=== PATIENT | female | born 1955 | race Caucasian/White ===

== ENCOUNTER 2017-10-18 14:19 | Inpatient (IN) | payer OTHER ==
[~2017-10-18] VITALS: Ht 172.7 cm; Wt 159.2 kg
[~2017-10-18 14:19] MED LIST: CYCLOBENZAPRINE10 MG PO; MEDROL4 MG/DOSE- PO; NORCO 10-325 T1 EACH PO; OXYBUTYNIN CHLO10 MG PO; PERCOCET 10-321 EACH PO; PHENDIMETRAZIN105 MG PO; PHENTERMINE H37.5 MG PO; TOVIAZ8 MG PO; VENLAFAXINE HCL75 M1 PO
[2017-10-18] MEDS ORDERED: ASPIRIN 81 MG CHEW TAB PO ONE (16:00)
[2017-10-18 16:09] LABS: BASOPHILS # (AUTO) 0.1 (0.0-0.1); BASOPHILS % 0.7 % (0.0-1.0); EOSINOPHILS # (AUTO) 0.2 (0.0-0.4); EOSINOPHILS % 1.6 % (0.0-6.0); HEMATOCRIT 46.4 % (34.2-44.1); HEMOGLOBIN 14.3 g/dL (12.0-16.0); LYMPHOCYTES # (AUTO) 1.3 (1.0-3.2); MEAN CORPUSCULAR HEMOGLOBIN 28.1 pg (28-32); MEAN CORPUSCULAR HGB CONC 30.8 g/dL (31-35); MEAN CORPUSCULAR VOLUME 91.3 fL (81-99); MONOCYTES % 9.4 % (4.4-11.3); NEUTROPHILS # (AUTO) 7.7 (2.1-6.9); NEUTROPHILS % 74.8 % (38.7-80.0); PLATELET COUNT 294 x10e3/uL (140-360); RED BLOOD COUNT 5.08 x10e6/uL (3.6-5.1); RED CELL DISTRIBUTION WIDTH 14.4 % (11.7-14.4)
[2017-10-18 16:15] LABS: INR 1.06; PARTIAL THROMBOPLASTIN TIME 30.8 seconds (23.8-35.5); PROTHROMBIN TIME 14.4 seconds (11.9-14.5)
[2017-10-18 16:24] LABS: ALANINE AMINOTRANSFERASE 17 IU/L (0-55); ALBUMIN 3.4 g/dL (3.5-5.0); ALBUMIN/GLOBULIN RATIO 0.9 (0.8-2.0); ALKALINE PHOSPHATASE 78 IU/L (40-150); ANION GAP 14.9 mmol/L (8-16); BLOOD UREA NITROGEN 11 mg/dL (7-26); BUN/CREATININE RATIO 13 (6-25); CALCIUM 8.9 mg/dL (8.4-10.2); CARBON DIOXIDE 27 mmol/L (22-29); CHLORIDE 101 mmol/L (98-107); CREATINE KINASE 43 IU/L (29-168); CREATININE, SERUM 0.85 mg/dL (0.57-1.11); EST GLOMERULAR FILTRATION RATE > 60 ML/MIN (60-); GLUCOSE 109 mg/dL (74-118); POTASSIUM 3.9 mmol/L (3.5-5.1); SODIUM 139 mmol/L (136-145)
--- NOTE | 2017-10-18 16:42 | Diagnostic Imaging Report ---
PROCEDURE: A single AP view of the chest. COMPARISON: DX, CHEST XRAY LINE PLACEMENT, 11/30/2015, 11:22. INDICATIONS: SWOLLEN LEGS, CHEST PAIN, COUGH FINDINGS: Lines/tubes: None. Lungs: Mild elevation of the right hemidiaphragm. Prominence of the pulmonary vasculature with redistribution bilaterally. Pleura: There is no pleural effusion or pneumothorax. Heart and mediastinum: The cardiac silhouette is moderately enlarged. Bones: No acute bony abnormality. IMPRESSION: 1. Bilateral pulmonary venous congestion. Josh Andrade M.D. Dictated by: Josh Andrade M.D. on 10/18/2017 at 16:50 Electronically approved by: Josh Andrade M.D. on 10/18/2017 at 16:50
[2017-10-18] MEDS ORDERED: DILTIAZEM HCL 5 MG/ML 5 ML VIAL IV ONE (19:00)
[2017-10-18] MEDS ORDERED: ENOXAPARIN SODIUM INJ 100 MG/ML SYR SC ONE ×2 (19:13→19:30)
[2017-10-18] MEDS: DILTIAZEM HCL 100 ML IV PRN ×2 (19:19→22:06)
[2017-10-18] MEDS ORDERED: ONDANSETRON HCL INJ 2 MG/ML VIAL IV PRN (19:45)
[2017-10-18] MEDS ORDERED: FUROSEMIDE INJ 10 MG/ML 4 ML VIAL IV ONE (19:45)
[2017-10-18] MEDS ORDERED: SODIUM CHLORIDE FLUSH 10 ML SYR INJ PRN (19:45)
[2017-10-18] MEDS: ENOXAPARIN SODIUM INJ 100 MG/ML SYR SC SCH (20:30)
[2017-10-19] VITALS (8 sets, daily range): BP systolic 108–129; BP diastolic 64–84
[2017-10-19 00:54] LABS: CREATINE KINASE MB 1.3 ng/mL (0.00-5.00)
[2017-10-19] MEDS: DILTIAZEM HCL 100 ML IV PRN (04:25)
[2017-10-19 05:01] LABS: BASOPHILS # (AUTO) 0.1 (0.0-0.1); EOSINOPHILS # (AUTO) 0.2 (0.0-0.4); EOSINOPHILS % 2.4 % (0.0-6.0); HEMATOCRIT 43.4 % (34.2-44.1); HEMOGLOBIN 13.3 g/dL (12.0-16.0); LYMPHOCYTES # (AUTO) 1.4 (1.0-3.2); LYMPHOCYTES % 15.5 % (18.0-39.1); MEAN CORPUSCULAR HEMOGLOBIN 28.4 pg (28-32); MEAN CORPUSCULAR HGB CONC 30.6 g/dL (31-35); MEAN CORPUSCULAR VOLUME 92.7 fL (81-99); MONOCYTES % 11.5 % (4.4-11.3); NEUTROPHILS # (AUTO) 6.1 (2.1-6.9); PLATELET COUNT 259 x10e3/uL (140-360); RED BLOOD COUNT 4.68 x10e6/uL (3.6-5.1); RED CELL DISTRIBUTION WIDTH 14.5 % (11.7-14.4)
[2017-10-19 05:23] LABS: ALANINE AMINOTRANSFERASE 23 IU/L (0-55); ALBUMIN 3.1 g/dL (3.5-5.0); ALBUMIN/GLOBULIN RATIO 0.9 (0.8-2.0); ALKALINE PHOSPHATASE 71 IU/L (40-150); ANION GAP 15.1 mmol/L (8-16); BLOOD UREA NITROGEN 11 mg/dL (7-26); BUN/CREATININE RATIO 13 (6-25); CALCIUM 8.7 mg/dL (8.4-10.2); CARBON DIOXIDE 30 mmol/L (22-29); CHLORIDE 101 mmol/L (98-107); CREATININE, SERUM 0.86 mg/dL (0.57-1.11); EST GLOMERULAR FILTRATION RATE > 60 ML/MIN (60-); GLUCOSE 93 mg/dL (74-118); POTASSIUM 4.1 mmol/L (3.5-5.1); SODIUM 142 mmol/L (136-145)
[2017-10-19 08:48] LABS: CREATINE KINASE MB 1.4 ng/mL (0.00-5.00)
[2017-10-19] MEDS ORDERED: DETROL LA4 MG PO (08:48)
[2017-10-19] MEDS: FUROSEMIDE INJ 10 MG/ML 4 ML VIAL IV SCH (09:23)
[2017-10-19] MEDS: ASPIRIN 81 MG ENTERIC COATED PO SCH (09:23)
[2017-10-19] MEDS: AMIODARONE HCL 200 MG TAB PO SCH ×2 (09:23→16:20)
[2017-10-19] MEDS: VENLAFAXINE HCL 75 MG CAPCR PO SCH (09:24)
[2017-10-19] MEDS: ENOXAPARIN SODIUM INJ 100 MG/ML SYR SC SCH ×2 (09:24→22:04)
[2017-10-19] MEDS: TOLTERODINE TARTRATE 4 MG CAPCR PO SCH (10:30)
--- NOTE | 2017-10-19 11:34 | Consultation ---
DATE OF CONSULTATION: October 18, 2017 REASON FOR CONSULTATION: AFib with RVR. CONSULTING PHYSICIAN: Dr. Bush. HPI: This is a 62-year-old morbidly obese female that presented with shortness of breath. According to the patient, for the last 3 weeks to 1 month, she started having bilateral lower extremity edema, worsening of shortness of breath. She stated she called the PCP office with her symptoms and they advised her to come to the emergency room. At ER, she was found to be in AFib with RVR, started on Cardizem drip. She denies any chest pain, any dizziness, any headache or diaphoresis. She also stated that 25 years ago, when she was having her bilateral carpal tunnel surgery, she had atrial fibrillation that went away. Her troponin was negative, BNP was 430, and chest x-ray showed some pulmonary venous congestion. PAST MEDICAL HISTORY: Paroxysmal AFib, obesity, cervical cancer, right hip abscess, osteoarthritis, depression, bladder incontinence, COPD, vascular arthritis, and asthma. PAST SURGICAL HISTORY: Carpal tunnel surgery, hysterectomy, , tonsillectomy, and bilateral hip replacement. FAMILY HISTORY: Positive for hypertension. SOCIAL HISTORY: She lives at home with her . No smoking, no drinking. MEDICATIONS: See med list. ALLERGIES: SHE IS ALLERGIC TO PENICILLIN. REVIEW OF SYSTEMS: Negative except those mentioned above. She is positive for AFib and shortness of breath. PHYSICAL EXAMINATION VITALS: Temperature 97, heart rate 95, blood pressure 130/83, oxygen saturation 100% on 2 liters nasal cannula. GENERAL: She is morbidly obese, awake, alert, and oriented times 3. HEENT: Mucous membrane moist. NECK: Supple. LUNGS: Bilateral with decreased breath sounds. CARDIOVASCULAR: Irregularly irregular. ABDOMEN: Soft. NEUROLOGIC: Intact. EXTREMITIES: Bilateral lower with +4 edema. LABORATORY DATA: Sodium 142, potassium 4.1, chloride 101, CO2 of 30, BUN 11, creatinine 0.86, glucose 93. White blood cell 8.84, hemoglobin 13.3, hematocrit 43.4, platelet 259. PT 14.4, PTT 30.8, INR 1.06. IMPRESSION 1. Atrial fibrillation. 2. Obesity. 3. Chronic obstructive pulmonary disease. 4. Depression. 5. Possible congestive heart failure. ASSESSMENT AND PLAN: Will get an echo to assess the LV and the valve function. Heart rate is controlled. Will stop the IV Cardizem drip and start her on p.o. amiodarone. Will continue Lovenox. Discussed to have a p.o. long-term anticoagulation and she wants to think about it. I put her on IV Lasix due to the edema and check her TSH. Further cardiac workup pending clinical course. Thank you for this consultation. DICTATED BY: Ori Pierce NP Job#: [id number] VAS
[2017-10-19] MEDS: METOPROLOL TARTRATE INJ 1 MG/ML VIAL IV PRN (14:40)
[2017-10-20] VITALS (8 sets, daily range): BP systolic 101–143; BP diastolic 51–92
[2017-10-20] MEDS ORDERED: TOLTERODINE TARTRATE 4 MG CAPCR PO SCH (09:00)
[2017-10-20] MEDS: FUROSEMIDE INJ 10 MG/ML 4 ML VIAL IV SCH (10:20)
[2017-10-20] MEDS: AMIODARONE HCL 200 MG TAB PO SCH ×2 (10:20→17:51)
[2017-10-20] MEDS: TOLTERODINE TARTRATE 4 MG CAPCR PO SCH (10:20)
[2017-10-20] MEDS: LISINOPRIL 2.5 MG TAB PO SCH (10:20)
[2017-10-20] MEDS: VENLAFAXINE HCL 75 MG CAPCR PO SCH (10:20)
[2017-10-20] MEDS: ENOXAPARIN SODIUM INJ 100 MG/ML SYR SC SCH ×2 (10:20→20:44)
[2017-10-20] MEDS: ASPIRIN 81 MG ENTERIC COATED PO SCH (10:20)
[2017-10-20] MEDS: NYSTATIN 15 GM POWDER UD BTL TOP SCH ×2 (17:52→20:44)
[2017-10-21] VITALS (7 sets, daily range): BP systolic 96–143; BP diastolic 54–81
[2017-10-21 09:02] LABS: BASOPHILS # (AUTO) 0.1 (0.0-0.1); BASOPHILS % 0.8 % (0.0-1.0); EOSINOPHILS # (AUTO) 0.3 (0.0-0.4); EOSINOPHILS % 3.7 % (0.0-6.0); HEMATOCRIT 44.4 % (34.2-44.1); HEMOGLOBIN 13.3 g/dL (12.0-16.0); LYMPHOCYTES # (AUTO) 1.2 (1.0-3.2); LYMPHOCYTES % 16.9 % (18.0-39.1); MEAN CORPUSCULAR HEMOGLOBIN 28.2 pg (28-32); MEAN CORPUSCULAR VOLUME 94.3 fL (81-99); MONOCYTES # (AUTO) 0.8 (0.2-0.8); MONOCYTES % 11.8 % (4.4-11.3); NEUTROPHILS # (AUTO) 4.7 (2.1-6.9); NEUTROPHILS % 66.4 % (38.7-80.0); PLATELET COUNT 278 x10e3/uL (140-360); RED BLOOD COUNT 4.71 x10e6/uL (3.6-5.1); RED CELL DISTRIBUTION WIDTH 14.6 % (11.7-14.4)
[2017-10-21 09:26] LABS: ALANINE AMINOTRANSFERASE 21 IU/L (0-55); ALBUMIN/GLOBULIN RATIO 0.8 (0.8-2.0); ALKALINE PHOSPHATASE 72 IU/L (40-150); ANION GAP 11.9 mmol/L (8-16); BLOOD UREA NITROGEN 9 mg/dL (7-26); BUN/CREATININE RATIO 11 (6-25); CALCIUM 8.5 mg/dL (8.4-10.2); CARBON DIOXIDE 35 mmol/L (22-29); CHLORIDE 99 mmol/L (98-107); CREATININE, SERUM 0.82 mg/dL (0.57-1.11); EST GLOMERULAR FILTRATION RATE > 60 ML/MIN (60-); GLUCOSE 88 mg/dL (74-118); POTASSIUM 3.9 mmol/L (3.5-5.1); SODIUM 142 mmol/L (136-145)
[2017-10-21] MEDS: NYSTATIN 15 GM POWDER UD BTL TOP SCH ×3 (09:50→21:09)
[2017-10-21] MEDS: TOLTERODINE TARTRATE 4 MG CAPCR PO SCH (09:50)
[2017-10-21] MEDS: VENLAFAXINE HCL 75 MG CAPCR PO SCH (09:50)
[2017-10-21] MEDS: ENOXAPARIN SODIUM INJ 100 MG/ML SYR SC SCH ×2 (09:50→21:09)
[2017-10-21] MEDS: ASPIRIN 81 MG ENTERIC COATED PO SCH (09:50)
[2017-10-21] MEDS: FUROSEMIDE INJ 10 MG/ML 4 ML VIAL IV SCH (09:50)
[2017-10-21] MEDS: AMIODARONE HCL 200 MG TAB PO SCH ×2 (09:50→18:25)
[2017-10-21] MEDS: LISINOPRIL 2.5 MG TAB PO SCH (09:50)
[2017-10-21] MEDS: METOPROLOL TARTRATE 25 MG TAB PO SCH (18:25)
[2017-10-22] VITALS (7 sets, daily range): BP systolic 93–126; BP diastolic 51–80
[2017-10-22] MEDS: METOPROLOL TARTRATE 25 MG TAB PO SCH ×3 (09:14→23:59)
[2017-10-22] MEDS: ASPIRIN 81 MG ENTERIC COATED PO SCH (09:14)
[2017-10-22] MEDS: AMIODARONE HCL 200 MG TAB PO SCH ×2 (09:14→16:48)
[2017-10-22] MEDS: VENLAFAXINE HCL 75 MG CAPCR PO SCH (09:14)
[2017-10-22] MEDS: FUROSEMIDE INJ 10 MG/ML 4 ML VIAL IV SCH (09:14)
[2017-10-22] MEDS: TOLTERODINE TARTRATE 4 MG CAPCR PO SCH (09:14)
[2017-10-22] MEDS: NYSTATIN 15 GM POWDER UD BTL TOP SCH ×3 (09:15→20:27)
[2017-10-22] MEDS: LISINOPRIL 2.5 MG TAB PO SCH (09:15)
[2017-10-22] MEDS ORDERED: RIVAROXABAN 20 MG TABLET PO SCH (17:00)
[2017-10-23] VITALS (7 sets, daily range): BP systolic 84–138; BP diastolic 43–83
[2017-10-23] MEDS: METOPROLOL TARTRATE 25 MG TAB PO SCH ×3 (06:13→17:00)
[2017-10-23 07:25] LABS: BASOPHILS # (AUTO) 0.1 (0.0-0.1); BASOPHILS % 1.3 % (0.0-1.0); EOSINOPHILS # (AUTO) 0.2 (0.0-0.4); EOSINOPHILS % 2.1 % (0.0-6.0); HEMATOCRIT 47.9 % (34.2-44.1); HEMOGLOBIN 14.1 g/dL (12.0-16.0); LYMPHOCYTES # (AUTO) 1.8 (1.0-3.2); LYMPHOCYTES % 19.4 % (18.0-39.1); MEAN CORPUSCULAR HEMOGLOBIN 28.1 pg (28-32); MEAN CORPUSCULAR HGB CONC 29.4 g/dL (31-35); MEAN CORPUSCULAR VOLUME 95.4 fL (81-99); MONOCYTES # (AUTO) 1.2 (0.2-0.8); MONOCYTES % 12.7 % (4.4-11.3); NEUTROPHILS # (AUTO) 5.9 (2.1-6.9); NEUTROPHILS % 64.1 % (38.7-80.0); PLATELET COUNT 293 x10e3/uL (140-360); RED BLOOD COUNT 5.02 x10e6/uL (3.6-5.1); RED CELL DISTRIBUTION WIDTH 14.8 % (11.7-14.4)
[2017-10-23 07:53] LABS: ALBUMIN 3.2 g/dL (3.5-5.0); ALBUMIN/GLOBULIN RATIO 0.9 (0.8-2.0); ANION GAP 15.4 mmol/L (8-16); CALCIUM 8.8 mg/dL (8.4-10.2); CREATININE, SERUM 1.77 mg/dL (0.57-1.11); POTASSIUM 4.4 mmol/L (3.5-5.1)
[2017-10-23] MEDS: FUROSEMIDE 20 MG TAB PO SCH (08:21)
[2017-10-23] MEDS: LISINOPRIL 2.5 MG TAB PO SCH (08:21)
[2017-10-23] MEDS: TOLTERODINE TARTRATE 4 MG CAPCR PO SCH (08:21)
[2017-10-23] MEDS: ASPIRIN 81 MG ENTERIC COATED PO SCH (08:21)
[2017-10-23] MEDS: AMIODARONE HCL 200 MG TAB PO SCH ×2 (08:21→17:00)
[2017-10-23] MEDS: VENLAFAXINE HCL 75 MG CAPCR PO SCH (08:21)
[2017-10-23] MEDS: NYSTATIN 15 GM POWDER UD BTL TOP SCH ×3 (08:21→20:16)
[2017-10-23] MEDS ORDERED: RIVAROXABAN 20 MG TABLET PO SCH (17:00)
[2017-10-23] MEDS ORDERED: SODIUM CHLORIDE 0.9% 250ML 250 ML ONE (20:04)
[2017-10-24] VITALS (7 sets, daily range): BP systolic 89–134; BP diastolic 50–94
[2017-10-24 07:22] LABS: BASOPHILS # (AUTO) 0.1 (0.0-0.1); EOSINOPHILS # (AUTO) 0.3 (0.0-0.4); EOSINOPHILS % 3.2 % (0.0-6.0); HEMATOCRIT 41.8 % (34.2-44.1); HEMOGLOBIN 12.6 g/dL (12.0-16.0); LYMPHOCYTES # (AUTO) 1.5 (1.0-3.2); LYMPHOCYTES % 16.9 % (18.0-39.1); MEAN CORPUSCULAR HEMOGLOBIN 28.4 pg (28-32); MEAN CORPUSCULAR HGB CONC 30.1 g/dL (31-35); MEAN CORPUSCULAR VOLUME 94.1 fL (81-99); MONOCYTES # (AUTO) 1.2 (0.2-0.8); MONOCYTES % 13.3 % (4.4-11.3); NEUTROPHILS # (AUTO) 5.9 (2.1-6.9); NEUTROPHILS % 65.2 % (38.7-80.0); PLATELET COUNT 252 x10e3/uL (140-360); RED BLOOD COUNT 4.44 x10e6/uL (3.6-5.1); RED CELL DISTRIBUTION WIDTH 14.6 % (11.7-14.4)
[2017-10-24 07:49] LABS: ALBUMIN 2.9 g/dL (3.5-5.0); ALBUMIN/GLOBULIN RATIO 0.9 (0.8-2.0); ANION GAP 14.9 mmol/L (8-16); CALCIUM 8.5 mg/dL (8.4-10.2); CREATININE, SERUM 1.42 mg/dL (0.57-1.11); POTASSIUM 3.9 mmol/L (3.5-5.1)
[2017-10-24] MEDS: FUROSEMIDE 20 MG TAB PO SCH (09:00)
[2017-10-24] MEDS: METOPROLOL TARTRATE 25 MG TAB PO SCH ×2 (09:00→17:30)
[2017-10-24] MEDS: LISINOPRIL 2.5 MG TAB PO SCH (09:00)
[2017-10-24] MEDS: NYSTATIN 15 GM POWDER UD BTL TOP SCH ×3 (09:00→21:10)
[2017-10-24] MEDS: AMIODARONE HCL 200 MG TAB PO SCH (09:00)
[2017-10-24] MEDS ORDERED: METOPROLOL TARTRATE 25 MG TAB PO SCH (09:00)
[2017-10-24] MEDS: ASPIRIN 81 MG ENTERIC COATED PO SCH (10:00)
[2017-10-24] MEDS: TOLTERODINE TARTRATE 4 MG CAPCR PO SCH (10:00)
[2017-10-24] MEDS: VENLAFAXINE HCL 75 MG CAPCR PO SCH (10:00)
[2017-10-24 18:01] LABS: BILIRUBIN,URINE NEGATIVE (NEGATIVE); KETONES,URINE NEGATIVE (NEGATIVE); LEUKOCYTE ESTERASE ,URINE 2+ (NEGATIVE); NITRITE,URINE NEGATIVE (NEGATIVE); PROTEIN,URINE DIPSTICK NEGATIVE (NEGATIVE); URINE UROBILINOGEN 0.2 mg/dL (0.2 - 1)
[2017-10-24 18:03] LABS: CLARITY,URINE HAZY (CLEAR); COLOR,URINE YELLOW (YELLOW)
[2017-10-25] VITALS: BP 120/68
[2017-10-25 04:00] VITALS: BP 123/82
[2017-10-25 08:09] VITALS: BP 109/56
[2017-10-25] MEDS ORDERED: ACETAMINOPHEN 325 MG TAB PO PRN (08:15)
[2017-10-25] MEDS: NYSTATIN 15 GM POWDER UD BTL TOP SCH ×3 (09:00→21:21)
[2017-10-25] MEDS: LISINOPRIL 2.5 MG TAB PO SCH (09:00)
[2017-10-25] MEDS: METOPROLOL TARTRATE 25 MG TAB PO SCH (09:00)
[2017-10-25] MEDS: TOLTERODINE TARTRATE 4 MG CAPCR PO SCH (09:15)
[2017-10-25] MEDS: ASPIRIN 81 MG ENTERIC COATED PO SCH (09:15)
[2017-10-25] MEDS: AMIODARONE HCL 200 MG TAB PO SCH (09:15)
[2017-10-25] MEDS: FUROSEMIDE 20 MG TAB PO SCH (09:15)
[2017-10-25] MEDS: VENLAFAXINE HCL 75 MG CAPCR PO SCH (09:15)
[2017-10-25 12:00] VITALS: BP 100/73
[2017-10-25] MEDS: METOPROLOL TARTRATE INJ 1 MG/ML VIAL IV PRN (18:15)
[2017-10-25 20:00] VITALS: BP 131/57
[2017-10-26] VITALS: BP 116/69
[2017-10-26 04:00] VITALS: BP 113/79
[2017-10-26 08:20] VITALS: BP 122/82
[2017-10-26] MEDS: VENLAFAXINE HCL 75 MG CAPCR PO SCH (09:57)
[2017-10-26] MEDS: METOPROLOL TARTRATE 25 MG TAB PO SCH (09:57)
[2017-10-26] MEDS: AMIODARONE HCL 200 MG TAB PO SCH (09:57)
[2017-10-26] MEDS: FUROSEMIDE 20 MG TAB PO SCH (09:57)
[2017-10-26] MEDS: LISINOPRIL 2.5 MG TAB PO SCH (09:57)
[2017-10-26] MEDS: ASPIRIN 81 MG ENTERIC COATED PO SCH (09:57)
[2017-10-26] MEDS: TOLTERODINE TARTRATE 4 MG CAPCR PO SCH (09:57)
[2017-10-26] MEDS: NYSTATIN 15 GM POWDER UD BTL TOP SCH (09:57)
[2017-10-26] MEDS ORDERED: LISINOPRIL2.5 MG PO (11:17)
[2017-10-26] MEDS ORDERED: AMIODARONE HCL200 MG PO (11:17)
[2017-10-26] MEDS ORDERED: LASIX20 MG PO (11:18)
[2017-10-26] MEDS ORDERED: METOPROLOL TART25 MG PO (11:18)
[2017-10-26 11:50] VITALS: BP 127/58
== END 2017-10-26 12:27 | disposition home or self-care (01) | DRG 291 ==
LOC: ER 14:19 → ERHOLD 20:26 → MED/SURG 10-19 18:54
PROVIDERS: ADMIT Internal Medicine; ATTEND Internal Medicine
DX: I13.0 Hypertensive heart and chronic kidney disease with heart failure and stage 1 through stage 4 chronic kidney disease, or unspecified chronic kidney disease (principal); I50.21 Acute systolic (congestive) heart failure; N17.9 Acute kidney failure, unspecified; Z68.43 Body mass index [BMI] 50.0-59.9, adult; J44.9 Chronic obstructive pulmonary disease, unspecified; N18.3 Chronic kidney disease, stage 3 (moderate); Z79.01 Long term (current) use of anticoagulants; E66.9 Obesity, unspecified; M13.88 Other specified arthritis, other site; I11.0 Hypertensive heart disease with heart failure; I48.0 Paroxysmal atrial fibrillation
CPT/HCPCS: 36415; 71045; 80053; 81003; 82550; 82553; 83735; 83880; 84443; 84484; 85025; 85610; 85730; 93005; 93306; 96372; 97139; 99284; J1650; J1940; J2405; J7050

== ENCOUNTER → 2020-03-22 | Emergency (ER) | payer OTHER ==
[~2020-03-22] VITALS: Ht 172.7 cm; Wt 159.2 kg
[~2020-03-22] MED LIST changes: +AMIODARONE HCL200 MG PO; +ASPIRIN 81 MG CHEW TAB PO STA; +DETROL LA4 MG PO; +DIGOXIN INJ 0.25 MG/ML 2 ML AMP IV ONE; +ENOXAPARIN SODIUM INJ 100 MG/ML SYR SC STA; +FAMOTIDINE 20 MG/2 ML VIAL IV STA; +LASIX20 MG PO; +LISINOPRIL2.5 MG PO; +METOPROLOL TART25 MG PO; +METOPROLOL TARTRATE 50 MG TAB PO ONE; +METOPROLOL TARTRATE INJ 1 MG/ML VIAL IV ONE; +SODIUM CHLORIDE 0.9% 1000ML 1,000 ML IV STA
--- OUTSIDE RECORDS SUMMARY | 2020-03-22 08:20 | XMS REPORT | Clinical Summary ---
Author Author [facility] Organization [facility] Address Unknown Phone Unavailable Care Team Providers Care Ham Pumper Name Role Phone PCP Unavailable Allergies Not on File Medications Not on file Active Problems Not on file Social History Date Tobacco Use Types Packs/Day Years Used Never Assessed Sex Assigned at Date Recorded Not on file Industry Job Start Date Occupation Not on file Not on file Not on file Travel End Travel History Travel Start No recent travel history available. Last Filed Vital Signs Not on file Plan of Treatment Not on file Results Not on fileafter 03/22/2019
--- OUTSIDE RECORDS SUMMARY | 2020-03-22 08:20 | XMS REPORT | Continuity of Care Document ---
Author Author [facility] t Organization [facility] Address [address] [place] [address] Phone Unavailable Care Team Providers Care Section Leader And Machine Setter Name Role Phone SELENE CAGEsoncharly Unavailable Payers Payer Name Policy Type Policy Number Effective Date Expiration Date S ource Problems This patient has no known problems. Allergies, Adverse Reactions, Alerts Allergy Name Allergy Type Status Severity Reaction(s) Onset Date Inacti ve Date Treating Clinician Comments Source Penicillins DA Active U 2018-07-06 00:00:00 [facility] Social History Social Habit Start Date Stop Date Quantity Comments Source Sex Assigned At [facility] Medications This patient has no known medications. Procedures This patient has no known procedures. Results Test Description Test Time Test Comments Results Result Comments Source CHEST SINGLE (PORTABLE) [facility] [address] [place] [address] Patient Name: DOV WILLOUGHBY MR #: [id number] : 1955 Age/Sex: 62/F Req #: [id number] Adm Physician: Ordered by: TOBY WU GREEN END WORKER Report #: [id number] Location: ER Room/Bed: Procedure: [id number] DX/CHEST SINGLE (PORTABLE) Exam Date: Exam Time: REPORT STATUS: Signed PROCEDURE: A single AP view of the chest. COMPARISON: DX, CHEST XRAY LINE PLACEMENT, 11/30/2015, 11:22. INDICATIONS: SWOLLEN LEGS, CHEST PAIN, COUGH FINDINGS: Lines/tubes: None. Lungs: Mild elevation of the right hemidiaphragm. Prominence of the pulmonary vasculature with redistribution bilaterally. Pleura: There is no pleural effusion or pneumothorax. Heart and mediastinum: The cardiac silhouette is moderately enlarged. Bones: No acute bony abnormality. IMPRESSION: 1. Bilateral pulmonary venous congestion. Josh Donald M.D. Dictated by: Josh Donald M.D. on 10/18/2017 at 16:50 Electronically approved by: Josh Donald M.D. on 10/18/2017 at 16:50 Dictated By: GULSHAN DONALD MD, MD [id number] Transcribed By: KATELYN on 10/18/17 1650 COPY TO: TOBY WU NP
--- NOTE | 2020-03-22 08:35 | Emergency Department Note ---
History of Present Illnes History of Present Illness History of Present Illness This is a 65 year old female .sent to ed from pcp of w/ a-fib rvr seen in pcp office this am c/o cp Chief Complaint Comment pt aaox4. walks with walker. nad. chest pain earlier, palpatation now. no sob. no n/v. hx of afib. in afib rvr. sent by rosalina Historian: Patient Arrival Mode: Car Onset (how long ago): day(s) (today) Radiation: non-radiation, back, neck, extremity, abdomen, periumbilical, flank, proximal, distal, other Severity: mild Onset quality: sudden Duration (how long): day(s) (today) Timing of current episode: constant Progression: unchanged Context: recent illness, recent surgery, recent immobilization, recent travel, trauma/injury, new medications, hx of DVT/PE, non-compliance w/ medications, other Relieving factors: none Exacerbating factors: none Treatments prior to arrival: none Past Medical/Family History Physician Review I have reviewed the patient's past medical and family history. Any updates have been documented here. Past Medical History Recent Fever: No Clinical Suspicion of Infectio: No New/Unexplained Change in Ment: No Other Medical History: a-fib avascular necrosis arthritis incontinence cervical ca Other Surgery: cervical sx achilles tendon repair Carpal tunnel Social History Smoking Cessation: Never Smoker Alcohol Use: None Any Illegal Drug Use: No TB Exposure/Symptoms: No Physically hurt or threatened: No Family History Family history of heart diseas: No Other Last Tetanus: unk Any Pre-Existing Lines (PICC,: No Review of Systems Review of Systems Constitutional: no symptoms EENTM: no symptoms Cardiovascular: no symptoms, chest pain, palpitations Respiratory: no symptoms Gastrointestinal: no symptoms Genitourinary: no symptoms Musculoskeletal: no symptoms Neurological: no symptoms Psychological: no symptoms Endocrine: no symptoms Hematological/Lymphatic: no symptoms Review of other systems All other systems reviewed and negative. Physical Exam Related Data Allergies: Coded Allergies: Penicillins (Verified Allergy, Unknown, 10/18/17) Triage Vital Signs Vital Signs Date Time Temp Pulse Resp B/P (MAP) Pulse Ox O2 Delivery O2 Flow Rate FiO2 03/22/20 08:33 97.5 128 18 139/50 97 Vital signs reviewed: Yes Physical Exam CONSTITUTIONAL Constitutional: obese HENT HENT: normocephalic, atraumatic, oropharynx clear/moist, nose normal HENT L/R: left ext ear normal, right ext ear normal EYES Eyes: PERRL, conjunctivae normal NECK Neck: ROM normal PULMONARY Pulmonary: effort normal, breath sounds normal CARDIOVASCULAR Cardiovascular: regular rhythm, heart sounds normal, capillary refill normal, tachycardia (128), LLE edema (1+), RLE edema (1+), other (c/o palptiations this am ) GASTROINTESTINAL Abdominal: soft, nontender, bowel sounds normal GENITOURINARY Genitourinary: exam deferred SKIN Skin: warm, dry MUSCULOSKELETAL Musculoskeletal: ROM normal NEUROLOGICAL Neurological: alert, oriented x 3, no gross motor or sensory deficits PSYCHOLOGICAL Psychological: mood/affect normal, judgement normal Results Laboratory Laboratory Laboratory Tests Test 03/22/20 09:28 03/22/20 09:05 03/22/20 08:37 White Blood Count 13.01 x10e3/uL (4.8-10.8) Red Blood Count 4.90 x10e6/uL (3.6-5.1) Hemoglobin 13.2 g/dL (12.0-16.0) Hematocrit 44.0 % (34.2-44.1) Mean Corpuscular Volume 89.8 fL (81-99) Mean Corpuscular Hemoglobin 26.9 pg (28-32) Mean Corpuscular Hemoglobin Concent 30.0 g/dL (31-35) Red Cell Distribution Width 13.8 % (11.7-14.4) Platelet Count 549 x10e3/uL (140-360) Neutrophils (%) (Auto) 76.2 % (38.7-80.0) Lymphocytes (%) (Auto) 9.5 % (18.0-39.1) Monocytes (%) (Auto) 9.5 % (4.4-11.3) Eosinophils (%) (Auto) 2.4 % (0.0-6.0) Basophils (%) (Auto) 0.7 % (0.0-1.0) Neutrophils # (Auto) 9.9 (2.1-6.9) Lymphocytes # (Auto) 1.2 (1.0-3.2) Monocytes # (Auto) 1.2 (0.2-0.8) Eosinophils # (Auto) 0.3 (0.0-0.4) Basophils # (Auto) 0.1 (0.0-0.1) Absolute Immature Granulocyte (auto 0.22 x10e3/uL (0-0.1) Sodium Level 141 mmol/L (136-145) Potassium Level 3.8 mmol/L (3.5-5.1) Chloride Level 100 mmol/L (98-107) Carbon Dioxide Level 28 mmol/L (22-29) Anion Gap 16.8 mmol/L (8-16) Blood Urea Nitrogen 10 mg/dL (7-26) Creatinine 1.26 mg/dL (0.57-1.11) Estimat Glomerular Filtration Rate 43 ML/MIN (60-) BUN/Creatinine Ratio 8 (6-25) Glucose Level 134 mg/dL (74-118) Calcium Level 9.0 mg/dL (8.4-10.2) Magnesium Level 1.7 MG/DL (1.3-2.1) Total Bilirubin 0.4 mg/dL (0.2-1.2) Aspartate Amino Transf (AST/SGOT) 13 IU/L (5-34) Alanine Aminotransferase (ALT/SGPT) 11 IU/L (0-55) Alkaline Phosphatase 92 IU/L (40-150) Creatine Kinase 24 IU/L (29-168) B-Type Natriuretic Peptide 36.6 pg/mL (0-100) Total Protein 7.7 g/dL (6.5-8.1) Albumin 2.4 g/dL (3.5-5.0) Globulin 5.3 g/dL (2.3-3.5) Albumin/Globulin Ratio 0.5 (0.8-2.0) Lipase 16 U/L (8-78) Thyroid Stimulating Hormone (TSH) 0.886 uIU/mL (0.350-4.940) Urine Color Yellow (YELLOW) Urine Clarity Cloudy (CLEAR) Urine pH 6 (5 - 7) Urine Specific [place] 1.025 (1.010-1.025) Urine Protein >=300 (NEGATIVE) Urine Glucose (UA) Negative (NEGATIVE) Urine Ketones Negative (NEGATIVE) Urine Blood Moderate (NEGATIVE) Urine Nitrite Positive (NEGATIVE) Urine Bilirubin Negative (NEGATIVE) Urine Urobilinogen 1 mg/dL (0.2 - 1) Urine Leukocyte Esterase Large (NEGATIVE) Urine RBC 0-5 /HPF (0-5) Urine WBC >50 /HPF (0-5) Urine Epithelial Cells Few /LPF (NONE) Urine Bacteria Many /HPF (NONE) Laboratory Tests Test 03/22/20 09:05 03/22/20 08:37 White Blood Count 13.01 x10e3/uL (4.8-10.8) Red Blood Count 4.90 x10e6/uL (3.6-5.1) Hemoglobin 13.2 g/dL (12.0-16.0) Hematocrit 44.0 % (34.2-44.1) Mean Corpuscular Volume 89.8 fL (81-99) Mean Corpuscular Hemoglobin 26.9 pg (28-32) Mean Corpuscular Hemoglobin Concent 30.0 g/dL (31-35) Red Cell Distribution Width 13.8 % (11.7-14.4) Platelet Count 549 x10e3/uL (140-360) Neutrophils (%) (Auto) 76.2 % (38.7-80.0) Lymphocytes (%) (Auto) 9.5 % (18.0-39.1) Monocytes (%) (Auto) 9.5 % (4.4-11.3) Eosinophils (%) (Auto) 2.4 % (0.0-6.0) Basophils (%) (Auto) 0.7 % (0.0-1.0) Neutrophils # (Auto) 9.9 (2.1-6.9) Lymphocytes # (Auto) 1.2 (1.0-3.2) Monocytes # (Auto) 1.2 (0.2-0.8) Eosinophils # (Auto) 0.3 (0.0-0.4) Basophils # (Auto) 0.1 (0.0-0.1) Absolute Immature Granulocyte (auto 0.22 x10e3/uL (0-0.1) Sodium Level 141 mmol/L (136-145) Potassium Level 3.8 mmol/L (3.5-5.1) Chloride Level 100 mmol/L (98-107) Carbon Dioxide Level 28 mmol/L (22-29) Anion Gap 16.8 mmol/L (8-16) Blood Urea Nitrogen 10 mg/dL (7-26) Creatinine 1.26 mg/dL (0.57-1.11) Estimat Glomerular Filtration Rate 43 ML/MIN (60-) BUN/Creatinine Ratio 8 (6-25) Glucose Level 134 mg/dL (74-118) Calcium Level 9.0 mg/dL (8.4-10.2) Magnesium Level 1.7 MG/DL (1.3-2.1) Total Bilirubin 0.4 mg/dL (0.2-1.2) Aspartate Amino Transf (AST/SGOT) 13 IU/L (5-34) Alanine Aminotransferase (ALT/SGPT) 11 IU/L (0-55) Alkaline Phosphatase 92 IU/L (40-150) Creatine Kinase 24 IU/L (29-168) Total Protein 7.7 g/dL (6.5-8.1) Albumin 2.4 g/dL (3.5-5.0) Globulin 5.3 g/dL (2.3-3.5) Albumin/Globulin Ratio 0.5 (0.8-2.0) Laboratory Tests Test 03/22/20 09:05 03/22/20 08:37 White Blood Count 13.01 x10e3/uL (4.8-10.8) Red Blood Count 4.90 x10e6/uL (3.6-5.1) Hemoglobin 13.2 g/dL (12.0-16.0) Hematocrit 44.0 % (34.2-44.1) Mean Corpuscular Volume 89.8 fL (81-99) Mean Corpuscular Hemoglobin 26.9 pg (28-32) Mean Corpuscular Hemoglobin Concent 30.0 g/dL (31-35) Red Cell Distribution Width 13.8 % (11.7-14.4) Platelet Count 549 x10e3/uL (140-360) Neutrophils (%) (Auto) 76.2 % (38.7-80.0) Lymphocytes (%) (Auto) 9.5 % (18.0-39.1) Monocytes (%) (Auto) 9.5 % (4.4-11.3) Eosinophils (%) (Auto) 2.4 % (0.0-6.0) Basophils (%) (Auto) 0.7 % (0.0-1.0) Neutrophils # (Auto) 9.9 (2.1-6.9) Lymphocytes # (Auto) 1.2 (1.0-3.2) Monocytes # (Auto) 1.2 (0.2-0.8) Eosinophils # (Auto) 0.3 (0.0-0.4) Basophils # (Auto) 0.1 (0.0-0.1) Absolute Immature Granulocyte (auto 0.22 x10e3/uL (0-0.1) Sodium Level 141 mmol/L (136-145) Potassium Level 3.8 mmol/L (3.5-5.1) Chloride Level 100 mmol/L (98-107) Carbon Dioxide Level 28 mmol/L (22-29) Anion Gap 16.8 mmol/L (8-16) Blood Urea Nitrogen 10 mg/dL (7-26) Creatinine 1.26 mg/dL (0.57-1.11) Estimat Glomerular Filtration Rate 43 ML/MIN (60-) BUN/Creatinine Ratio 8 (6-25) Glucose Level 134 mg/dL (74-118) Calcium Level 9.0 mg/dL (8.4-10.2) Magnesium Level 1.7 MG/DL (1.3-2.1) Total Bilirubin 0.4 mg/dL (0.2-1.2) Aspartate Amino Transf (AST/SGOT) 13 IU/L (5-34) Alanine Aminotransferase (ALT/SGPT) 11 IU/L (0-55) Alkaline Phosphatase 92 IU/L (40-150) Creatine Kinase 24 IU/L (29-168) Total Protein 7.7 g/dL (6.5-8.1) Albumin 2.4 g/dL (3.5-5.0) Globulin 5.3 g/dL (2.3-3.5) Albumin/Globulin Ratio 0.5 (0.8-2.0) Lab results reviewed: Yes Imaging Impressions CXR IMPRESSION: Low lung volumes. Otherwise, no acute cardiopulmonary process identified. Signed by: Dr. Charlie Mcdermott MD on 03/22/2020 9:33 AM Procedures 12 Lead ECG Interpretation Medical Examiner: Interpreted by ED physician Date: Mar 22, 2020 Time: 08:37 Prior BOOM STICK WORKER tracings: reviewed Rhythm: atrial fibrillation Rate: tachycardia BPM: 128 QRS axis: left ST segments depression: III, aVR, V1 Critical Care Time Subsequent provider I assumed direction of critical care for this patient from another provider of my specialty. Assessment & Plan Reassessment Reassessment time: 08:[address] Felix called me to discuss pt he was sending over - pt had recently been taken off meds couple months ago 65y f presented to ed sent from pcp office Dr Felix c/o palpitations cp on set this am hx a-fib - ekg in office + a-fib - pt denies sob n/v/dzziness quinones cp at this time - repeat ekg in ed noted a-fib w/rvr hr 128 - lab ekg cxr ordered pt medicated w/ asa, lovenox, pepcid, lopressor and dig in ed plan to transfer Assessment & Plan Final Impression: (1) Chest pain (2) A-fib Assessment & Plan hr down to 101 pt to be transfer to [facility] spoke w/ Dr Allen will accept transfer Depart Disposition: TRANS TO OTHER [facility] Home Meds Reported Medications Furosemide (LASIX) 20 Mg Tablet, 20 MG PO DAILY, #30 TAB 10/26/17 Metoprolol Tartrate (METOPROLOL TARTRATE) 25 Mg Tablet, 12.5 MG PO DAILY, TAB 10/26/17 Lisinopril (LISINOPRIL) 2.5 Mg Tablet, 2.5 MG PO DAILY, #30 TAB 10/26/17 Amiodarone Hcl (AMIODARONE HCL) 200 Mg Tablet, 200 MG PO DAILY 10/26/17 Tolterodine Tartrate (DETROL LA) 4 Mg Cap.er.24h, 4 MG PO DAILY, #30 CAP 10/19/17 Venlafaxine Hcl (VENLAFAXINE HCL ER) 75 Mg Cap.er.24h, 75 MG PO DAILY, #30 CAP 11/28/15 SIL CARMONA Mar 22, 2020 08:35
--- NOTE | 2020-03-22 08:52 | NUR ---
[facility] called for transport.
[2020-03-22 09:10] LABS: BASOPHILS # (AUTO) 0.1 (0.0-0.1); BASOPHILS % 0.7 % (0.0-1.0); EOSINOPHILS # (AUTO) 0.3 (0.0-0.4); EOSINOPHILS % 2.4 % (0.0-6.0); HEMOGLOBIN 13.2 g/dL (12.0-16.0); LYMPHOCYTES # (AUTO) 1.2 (1.0-3.2); LYMPHOCYTES % 9.5 % (18.0-39.1); MEAN CORPUSCULAR HEMOGLOBIN 26.9 pg (28-32); MEAN CORPUSCULAR VOLUME 89.8 fL (81-99); MONOCYTES # (AUTO) 1.2 (0.2-0.8); MONOCYTES % 9.5 % (4.4-11.3); NEUTROPHILS # (AUTO) 9.9 (2.1-6.9); NEUTROPHILS % 76.2 % (38.7-80.0); PLATELET COUNT 549 x10e3/uL (140-360); RED CELL DISTRIBUTION WIDTH 13.8 % (11.7-14.4)
[2020-03-22 09:36] LABS: ALBUMIN 2.4 g/dL (3.5-5.0); ALBUMIN/GLOBULIN RATIO 0.5 (0.8-2.0); ANION GAP 16.8 mmol/L (8-16); CREATININE, SERUM 1.26 mg/dL (0.57-1.11); MAGNESIUM 1.7 MG/DL (1.3-2.1); POTASSIUM 3.8 mmol/L (3.5-5.1)
--- NOTE | 2020-03-22 09:37 | Diagnostic Imaging Report ---
EXAM: CHEST SINGLE (PORTABLE) DATE: 03/22/2020 9:10 AM INDICATION: Atrial fibrillation COMPARISON: None FINDINGS: Lung volumes are low/there is poor inspiratory effort which limits evaluation. The trachea is midline. There is crowding of the central pulmonary vasculature which is likely secondary to low lung volumes. There is no evidence for large focal consolidation, pneumothorax, or significant pleural effusion. The cardiomediastinal silhouette is unremarkable. No acute osseous abnormality is identified. IMPRESSION: Low lung volumes. Otherwise, no acute cardiopulmonary process identified. Signed by: Dr. Charlie Mcdermott MD on 03/22/2020 9:33 AM
[2020-03-22 10:02] LABS: BILIRUBIN,URINE NEGATIVE (NEGATIVE); CLARITY,URINE CLOUDY (CLEAR); COLOR,URINE YELLOW (YELLOW); KETONES,URINE NEGATIVE (NEGATIVE); LEUKOCYTE ESTERASE ,URINE LARGE (NEGATIVE); NITRITE,URINE POSITIVE (NEGATIVE); PROTEIN,URINE DIPSTICK >=300 (NEGATIVE); URINE UROBILINOGEN 1 mg/dL (0.2 - 1)
[2020-03-22 10:12] LABS: THYROID STIMULATING HORMONE 0.886 uIU/mL (0.350-4.940)
[2020-03-22 10:15] LABS: BACTERIA,URINE MANY /HPF; EPITHELIAL CELLS,URINE FEW /LPF; RBC,URINE 0-5 /HPF (0-5); WBC,URINE (MAN) >50 /HPF (0-5)
[2020-03-22 10:30] LABS: CREATINE KINASE MB 0.6 ng/mL (0-5.0)
--- NOTE | 2020-03-22 10:39 | NUR ---
attempted to call report unable to get in contact with receiving nurse was told by transport center that nurse would call back.
[2020-03-22 11:13] VITALS: BP 138/96
[2020-03-22 11:16] LABS: INR 0.91; PROTHROMBIN TIME 12.8 seconds (11.9-14.5)
[2020-03-22 11:17] LABS: PARTIAL THROMBOPLASTIN TIME 39.3 seconds (23.8-35.5)
== END | disposition home or self-care (01) ==
LOC: ER 08:18
DX: R07.9 Chest pain, unspecified (principal); I48.91 Unspecified atrial fibrillation; F41.9 Anxiety disorder, unspecified; Z11.59 Encounter for screening for other viral diseases
CPT/HCPCS: 36415; 71045; 80053; 81001; 82550; 82553; 83690; 83735; 83880; 84443; 84484; 85025; 85610; 85730; 87086; 87186; 87635; 99284; J1160; J1650; J7030

== ENCOUNTER → 2022-06-20 | Outpatient (CLI) | payer OTHER ==
[~2022-06-20] MED LIST changes: -ASPIRIN 81 MG CHEW TAB PO STA; -DIGOXIN INJ 0.25 MG/ML 2 ML AMP IV ONE; -ENOXAPARIN SODIUM INJ 100 MG/ML SYR SC STA; -FAMOTIDINE 20 MG/2 ML VIAL IV STA; -METOPROLOL TARTRATE 50 MG TAB PO ONE; -METOPROLOL TARTRATE INJ 1 MG/ML VIAL IV ONE; -SODIUM CHLORIDE 0.9% 1000ML 1,000 ML IV STA
== END ==
LOC: US 15:00
PROVIDERS: ATTEND Internal Medicine
DX: L03.116 Cellulitis of left lower limb (principal); R22.42 Localized swelling, mass and lump, left lower limb
CPT/HCPCS: 76882

== ENCOUNTER 2024-05-13 06:07 | Inpatient (IN) | payer OTHER ==
[~2024-05-13] VITALS: Ht 172.7 cm; Wt 149.2 kg
[2024-05-13] VITALS (40 sets, daily range): BP systolic 78–129; BP diastolic 41–104; PULSE 73–107; RESP 11–28; TEMP 97.8–98.8; O2SAT 82–100
[~2024-05-13 06:07] MED LIST changes: +BUMETANIDE1 MG PO; +BUPROPION HCL150 M2; +LEVOTHYROXINE200 MCG; +METOPROLOL TART50 MG; +MONTELUKAST SOD10 MG; +PANTOPRAZOLE SO40 MG
[2024-05-13 06:57] LABS: BASOPHILS # (AUTO) 0.1 (0.0-0.1); BASOPHILS % 0.5 % (0.0-1.0); EOSINOPHILS # (AUTO) 0.1 (0.0-0.4); EOSINOPHILS % 0.3 % (0.0-6.0); HEMATOCRIT 37.1 % (34.2-44.1); HEMOGLOBIN 10.9 g/dL (12.0-16.0); LYMPHOCYTES # (AUTO) 1.7 (1.0-3.2); LYMPHOCYTES % 7.5 % (18.0-39.1); MEAN CORPUSCULAR HEMOGLOBIN 24.9 pg (28-32); MEAN CORPUSCULAR HGB CONC 29.4 g/dL (31-35); MEAN CORPUSCULAR VOLUME 84.7 fL (81-99); MONOCYTES # (AUTO) 1.4 (0.2-0.8); MONOCYTES % 6.2 % (4.4-11.3); NEUTROPHILS # (AUTO) 18.4 (2.1-6.9); NEUTROPHILS % 81.6 % (38.7-80.0); PLATELET COUNT 608 x10e3/uL (140-360); RED BLOOD COUNT 4.38 x10e6/uL (3.6-5.1); RED CELL DISTRIBUTION WIDTH 17.3 % (11.7-14.4); WHITE BLOOD COUNT 22.57 x10e3/uL (4.8-10.8)
[2024-05-13] MEDS: SODIUM CHLORIDE 0.9% 1000ML 1,000 ML IV STA ×3 (06:58→08:20)
[2024-05-13] MEDS: Vancomycin IV 1 GM in SODIUM CHLORIDE 0.9% 250ML 250 ML IV ONE (07:15)
[2024-05-13 07:18] LABS: ALBUMIN 2.7 g/dL (3.5-5.0); ALBUMIN/GLOBULIN RATIO 0.5 (0.8-2.0); ANION GAP 21.1 mmol/L (8-16); BILIRUBIN,TOTAL 0.7 mg/dL (0.2-1.2); CREATININE, SERUM 2.26 mg/dL (0.57-1.11); POTASSIUM 4.1 mmol/L (3.5-5.1); TOTAL PROTEIN 7.8 g/dL (6.5-8.1)
[2024-05-13 07:21] LABS: PROTHROMBIN TIME > 120.0 seconds (11.9-14.5)
[2024-05-13] MEDS: METOPROLOL TARTRATE INJ 1 MG/ML VIAL IV ONE (07:21)
[2024-05-13 07:23] LABS: PARTIAL THROMBOPLASTIN TIME 199.7 seconds (23.8-35.5)
[2024-05-13 07:42] LABS: TROPONIN I 0.003 ng/mL (0-0.300)
[2024-05-13 07:47] LABS: BILIRUBIN,URINE LARGE (NEGATIVE); CLARITY,URINE TURBID (CLEAR); COLOR,URINE RED (YELLOW); GLUCOSE, URINE 1+ (NEGATIVE); KETONES,URINE 2+ (NEGATIVE); LEUKOCYTE ESTERASE ,URINE LARGE (NEGATIVE); NITRITE,URINE POSITIVE (NEGATIVE); PH,URINE 8.5 (5 - 7); PROTEIN,URINE DIPSTICK >=300 (NEGATIVE); URINE UROBILINOGEN >=8 mg/dL (0.2 - 1)
[2024-05-13 07:48] LABS: BACTERIA,URINE MANY /HPF; EPITHELIAL CELLS,URINE MODERATE /LPF; RBC,URINE >50 /HPF (0-5); WBC,URINE (MAN) 21-50 /HPF (0-5)
[2024-05-13] MEDS: MAGNESIUM SULFATE 2GM/50ML 50 ML IV ONE (07:55)
[2024-05-13] MEDS: PHYTONADIONE 10 MG/ML AMP SQ ONE (07:55)
[2024-05-13] MEDS: METOPROLOL TARTRATE 25 MG TAB PO ONE (08:27)
[2024-05-13] MEDS: MEROPENEM 1 GM in SODIUM CHLORIDE 0.9% 100 ML IV SCH (08:30)
[2024-05-13] MEDS ORDERED: ONDANSETRON HCL INJ 2MG/ML 2ML 2 MG/ML VIAL IV PRN (08:30)
[2024-05-13] MEDS: METOPROLOL TARTRATE 25 MG TAB PO SCH (08:30)
[2024-05-13] MEDS ORDERED: IOPAMIDOL 370 MG/ML 100 ML INFUS..BTL INJ ONE (08:33)
[2024-05-13 09:54] LABS: PARTIAL THROMBOPLASTIN TIME 169.6 seconds (23.8-35.5)
[2024-05-13 09:55] LABS: PROTHROMBIN TIME > 120.0 seconds (11.9-14.5)
[2024-05-13] MEDS ORDERED: SODIUM CHLORIDE 0.9% 250ML 250 ML ONE (10:02)
[2024-05-13] MEDS: SODIUM CHLORIDE 0.9% 1000ML 1,000 ML IV SCH (10:07)
[2024-05-13 12:26] LABS: CREATINE KINASE 195 IU/L (29-168)
[2024-05-13 12:54] LABS: TROPONIN I < 0.001 ng/mL (0-0.300)
[2024-05-13 20:25] LABS: TROPONIN I 0.007 ng/mL (0-0.300)
[2024-05-14] VITALS (26 sets, daily range): BP systolic 67–115; BP diastolic 38–90; PULSE 73–105; RESP 12–24; TEMP 97.9–98.9; O2SAT 96–100
[2024-05-14 06:48] LABS: BASOPHILS # (AUTO) 0.1 (0.0-0.1); BASOPHILS % 0.7 % (0.0-1.0); EOSINOPHILS # (AUTO) 0.7 (0.0-0.4); EOSINOPHILS % 6.4 % (0.0-6.0); HEMATOCRIT 26.3 % (34.2-44.1); LYMPHOCYTES # (AUTO) 1.6 (1.0-3.2); LYMPHOCYTES % 14.1 % (18.0-39.1); MEAN CORPUSCULAR HEMOGLOBIN 25.1 pg (28-32); MEAN CORPUSCULAR HGB CONC 28.9 g/dL (31-35); MEAN CORPUSCULAR VOLUME 86.8 fL (81-99); MONOCYTES # (AUTO) 1.2 (0.2-0.8); MONOCYTES % 10.3 % (4.4-11.3); NEUTROPHILS # (AUTO) 7.4 (2.1-6.9); NEUTROPHILS % 65.4 % (38.7-80.0); PLATELET COUNT 483 x10e3/uL (140-360); RED BLOOD COUNT 3.03 x10e6/uL (3.6-5.1); RED CELL DISTRIBUTION WIDTH 17.2 % (11.7-14.4)
[2024-05-14 06:51] LABS: ALBUMIN 2.3 g/dL (3.5-5.0); ALBUMIN/GLOBULIN RATIO 0.6 (0.8-2.0); ANION GAP 13.1 mmol/L (8-16); BILIRUBIN,TOTAL 0.5 mg/dL (0.2-1.2); CALCIUM 7.3 mg/dL (8.4-10.2); CHOL/HDL RATIO 5.5 (3.0-3.6); CREATININE, SERUM 1.16 mg/dL (0.57-1.11); TOTAL PROTEIN 5.9 g/dL (6.5-8.1)
[2024-05-14] MEDS: LEVOTHYROXINE SODIUM 100 MCG TAB PO SCH (06:51)
[2024-05-14 06:52] LABS: POTASSIUM 3.1 mmol/L (3.5-5.1)
[2024-05-14 06:52] LABS: HEMOGLOBIN 7.6 g/dL (12.0-16.0); WHITE BLOOD COUNT 11.25 x10e3/uL (4.8-10.8)
[2024-05-14 07:01] LABS: INR 3.61; PROTHROMBIN TIME 38.2 seconds (11.9-14.5)
[2024-05-14 08:07] LABS: TROPONIN I 0.002 ng/mL (0-0.300)
[2024-05-14] MEDS: POTASSIUM CHLORIDE 20MEQ/100ML 100 ML IV SCH (08:24)
[2024-05-14] MEDS: PANTOPRAZOLE SOD 40 MG TABEC PO SCH (09:40)
[2024-05-14] MEDS: BUPROPION HCL SR 150 MG TAB PO SCH (09:40)
[2024-05-14] MEDS ORDERED: CLOTRIMAZOLE/BETAMETHASONE 45 GM CR TP PRN (16:15)
[2024-05-14] MEDS: MONTELUKAST SODIUM 10 MG TAB PO SCH (20:51)
[2024-05-15] VITALS (24 sets, daily range): BP systolic 79–148; BP diastolic 34–127; PULSE 42–130; RESP 11–24; TEMP 98–98.5; O2SAT 86–100
[2024-05-15 06:53] LABS: BASOPHILS % 0.4 % (0.0-1.0); EOSINOPHILS # (AUTO) 0.7 (0.0-0.4); EOSINOPHILS % 7.7 % (0.0-6.0); HEMATOCRIT 28.8 % (34.2-44.1); HEMOGLOBIN 7.8 g/dL (12.0-16.0); LYMPHOCYTES # (AUTO) 1.4 (1.0-3.2); LYMPHOCYTES % 15.1 % (18.0-39.1); MEAN CORPUSCULAR HEMOGLOBIN 24.7 pg (28-32); MEAN CORPUSCULAR HGB CONC 27.1 g/dL (31-35); MEAN CORPUSCULAR VOLUME 91.1 fL (81-99); MONOCYTES % 11.1 % (4.4-11.3); NEUTROPHILS # (AUTO) 5.4 (2.1-6.9); NEUTROPHILS % 60.3 % (38.7-80.0); PLATELET COUNT 507 x10e3/uL (140-360); RED BLOOD COUNT 3.16 x10e6/uL (3.6-5.1); RED CELL DISTRIBUTION WIDTH 17.1 % (11.7-14.4); WHITE BLOOD COUNT 8.95 x10e3/uL (4.8-10.8)
[2024-05-15 07:06] LABS: INR 3.62; PROTHROMBIN TIME 38.3 seconds (11.9-14.5)
[2024-05-15 07:17] LABS: ALBUMIN 2.2 g/dL (3.5-5.0); ALBUMIN/GLOBULIN RATIO 0.6 (0.8-2.0); ANION GAP 11.6 mmol/L (8-16); BILIRUBIN,TOTAL 0.5 mg/dL (0.2-1.2); CALCIUM 7.3 mg/dL (8.4-10.2); CREATININE, SERUM 0.86 mg/dL (0.57-1.11); MAGNESIUM 1.5 MG/DL (1.3-2.1); POTASSIUM 3.6 mmol/L (3.5-5.1); TOTAL PROTEIN 5.8 g/dL (6.5-8.1)
[2024-05-15] MEDS: BALSAM PERU/CASTOR OIL 60 GM OINT...G. TP SCH (08:32)
[2024-05-16] VITALS (10 sets, daily range): BP systolic 111–131; BP diastolic 57–71; PULSE 97–111; RESP 15–20; TEMP 97.6–99.1; O2SAT 97–100
[2024-05-16 06:38] LABS: BASOPHILS # (AUTO) 0.1 (0.0-0.1); EOSINOPHILS # (AUTO) 0.6 (0.0-0.4); EOSINOPHILS % 7.3 % (0.0-6.0); HEMATOCRIT 27.1 % (34.2-44.1); HEMOGLOBIN 7.6 g/dL (12.0-16.0); LYMPHOCYTES # (AUTO) 1.5 (1.0-3.2); LYMPHOCYTES % 16.7 % (18.0-39.1); MEAN CORPUSCULAR HEMOGLOBIN 25.4 pg (28-32); MEAN CORPUSCULAR VOLUME 90.6 fL (81-99); MONOCYTES % 11.5 % (4.4-11.3); NEUTROPHILS % 58.1 % (38.7-80.0); PLATELET COUNT 485 x10e3/uL (140-360); RED BLOOD COUNT 2.99 x10e6/uL (3.6-5.1); RED CELL DISTRIBUTION WIDTH 17.3 % (11.7-14.4); WHITE BLOOD COUNT 8.67 x10e3/uL (4.8-10.8)
[2024-05-16 06:50] LABS: ALBUMIN/GLOBULIN RATIO 0.6 (0.8-2.0); ANION GAP 10.5 mmol/L (8-16); BILIRUBIN,TOTAL 0.6 mg/dL (0.2-1.2); CALCIUM 7.5 mg/dL (8.4-10.2); CREATININE, SERUM 0.76 mg/dL (0.57-1.11); POTASSIUM 3.5 mmol/L (3.5-5.1); TOTAL PROTEIN 5.6 g/dL (6.5-8.1)
[2024-05-16 07:08] LABS: INR 3.29; PROTHROMBIN TIME 35.5 seconds (11.9-14.5)
[2024-05-16 08:52] LABS: BASOPHILS % (MANUAL) 2 % (0-1.5); EOSINOPHILS % (MANUAL) 4 % (0-7); LYMPHOCYTES % (MANUAL) 18 % (19-48); MONOCYTES % (MANUAL) 8 % (3.4-9.0); MYELOCYTES % (MANUAL) 2 % (0-0); NEUTROPHILS % (MANUAL) 66 % (40-74); PLATELET ESTIMATE ADEQUATE; PLATELET MORPHOLOGY COMMENT NORMAL; RBC MORPHOLOGY COMMENT NORMAL
[2024-05-16] MEDS: METOPROLOL TARTRATE INJ 1 MG/ML VIAL IV PRN (10:52)
[2024-05-16] MEDS: METOPROLOL SUCCINATE 50 MG TAB XL PO SCH (12:09)
[2024-05-17] VITALS (10 sets, daily range): BP systolic 96–132; BP diastolic 47–89; PULSE 75–105; RESP 18–20; TEMP 98–98.5; O2SAT 94–98
[2024-05-17] MEDS: BUMETANIDE 1 MG TAB PO SCH (09:39)
[2024-05-17] MEDS: HYDROCODONE/APAP 5MG-325MG TAB PO PRN (17:14)
[2024-05-17 18:18] LABS: INR 2.78; PROTHROMBIN TIME 31.1 seconds (11.9-14.5)
[2024-05-18] VITALS (11 sets, daily range): BP systolic 106–168; BP diastolic 49–88; PULSE 83–107; RESP 17–19; TEMP 97.6–98.2; O2SAT 94–100
[2024-05-18 06:57] LABS: BASOPHILS % 0.4 % (0.0-1.0); EOSINOPHILS # (AUTO) 0.7 (0.0-0.4); EOSINOPHILS % 7.1 % (0.0-6.0); HEMATOCRIT 29.7 % (34.2-44.1); HEMOGLOBIN 8.2 g/dL (12.0-16.0); LYMPHOCYTES # (AUTO) 1.2 (1.0-3.2); LYMPHOCYTES % 12.8 % (18.0-39.1); MEAN CORPUSCULAR HEMOGLOBIN 25.3 pg (28-32); MEAN CORPUSCULAR HGB CONC 27.6 g/dL (31-35); MEAN CORPUSCULAR VOLUME 91.7 fL (81-99); MONOCYTES # (AUTO) 0.9 (0.2-0.8); NEUTROPHILS # (AUTO) 6.1 (2.1-6.9); NEUTROPHILS % 67.5 % (38.7-80.0); PLATELET COUNT 400 x10e3/uL (140-360); RED BLOOD COUNT 3.24 x10e6/uL (3.6-5.1); RED CELL DISTRIBUTION WIDTH 18.2 % (11.7-14.4); WHITE BLOOD COUNT 9.11 x10e3/uL (4.8-10.8)
[2024-05-18 07:11] LABS: INR 2.23; PROTHROMBIN TIME 26.1 seconds (11.9-14.5)
[2024-05-18 07:17] LABS: ANION GAP 12.5 mmol/L (8-16); CALCIUM 7.9 mg/dL (8.4-10.2); CREATININE, SERUM 0.67 mg/dL (0.57-1.11); POTASSIUM 3.5 mmol/L (3.5-5.1)
[2024-05-18] MEDS: APIXABAN 5 MG TABLET PO SCH (08:54)
[2024-05-18] MEDS ORDERED: ONDANSETRON HCL 4 MG ORAL DISINTEGRATING TAB PO PRN (15:15)
[2024-05-19] VITALS (11 sets, daily range): BP systolic 105–138; BP diastolic 49–89; PULSE 89–105; RESP 17–22; TEMP 97.7–98.5; O2SAT 96–100
[2024-05-19 06:01] LABS: BASOPHILS # (AUTO) 0.1 (0.0-0.1); BASOPHILS % 0.5 % (0.0-1.0); EOSINOPHILS # (AUTO) 0.6 (0.0-0.4); EOSINOPHILS % 5.9 % (0.0-6.0); HEMATOCRIT 31.5 % (34.2-44.1); HEMOGLOBIN 8.7 g/dL (12.0-16.0); LYMPHOCYTES # (AUTO) 1.3 (1.0-3.2); LYMPHOCYTES % 12.1 % (18.0-39.1); MEAN CORPUSCULAR HEMOGLOBIN 25.1 pg (28-32); MEAN CORPUSCULAR HGB CONC 27.6 g/dL (31-35); MONOCYTES # (AUTO) 1.1 (0.2-0.8); MONOCYTES % 10.5 % (4.4-11.3); NEUTROPHILS # (AUTO) 7.2 (2.1-6.9); NEUTROPHILS % 69.6 % (38.7-80.0); PLATELET COUNT 405 x10e3/uL (140-360); RED BLOOD COUNT 3.46 x10e6/uL (3.6-5.1); RED CELL DISTRIBUTION WIDTH 19.1 % (11.7-14.4); WHITE BLOOD COUNT 10.36 x10e3/uL (4.8-10.8)
[2024-05-19 06:28] LABS: ALBUMIN 2.3 g/dL (3.5-5.0); ALBUMIN/GLOBULIN RATIO 0.6 (0.8-2.0); ANION GAP 11.5 mmol/L (8-16); BILIRUBIN,TOTAL 0.8 mg/dL (0.2-1.2); CREATININE, SERUM 0.7 mg/dL (0.57-1.11); POTASSIUM 3.5 mmol/L (3.5-5.1)
[2024-05-19] MEDS: CEFTRIAXONE 2 GM in SODIUM CHLORIDE 0.9% 100 ML IV SCH (18:32)
[2024-05-20] VITALS (10 sets, daily range): BP systolic 98–151; BP diastolic 43–77; PULSE 51–98; RESP 17–20; TEMP 97.8–99.2; O2SAT 91–100
[2024-05-20] MEDS: AMIODARONE HCL 200 MG TAB PO SCH (09:05)
[2024-05-21] VITALS (11 sets, daily range): BP systolic 106–136; BP diastolic 49–74; PULSE 82–99; RESP 17–20; TEMP 97.6–99.2; O2SAT 98–100
[2024-05-21 07:07] LABS: BASOPHILS # (AUTO) 0.1 (0.0-0.1); BASOPHILS % 0.7 % (0.0-1.0); EOSINOPHILS # (AUTO) 0.6 (0.0-0.4); EOSINOPHILS % 8.1 % (0.0-6.0); HEMATOCRIT 31.8 % (34.2-44.1); HEMOGLOBIN 8.8 g/dL (12.0-16.0); LYMPHOCYTES # (AUTO) 1.3 (1.0-3.2); LYMPHOCYTES % 17.5 % (18.0-39.1); MEAN CORPUSCULAR HEMOGLOBIN 25.6 pg (28-32); MEAN CORPUSCULAR HGB CONC 27.7 g/dL (31-35); MEAN CORPUSCULAR VOLUME 92.4 fL (81-99); MONOCYTES # (AUTO) 0.9 (0.2-0.8); MONOCYTES % 12.2 % (4.4-11.3); NEUTROPHILS # (AUTO) 4.4 (2.1-6.9); NEUTROPHILS % 60.1 % (38.7-80.0); PLATELET COUNT 353 x10e3/uL (140-360); RED BLOOD COUNT 3.44 x10e6/uL (3.6-5.1); RED CELL DISTRIBUTION WIDTH 20.6 % (11.7-14.4)
[2024-05-21 07:50] LABS: ALBUMIN 2.3 g/dL (3.5-5.0); ALBUMIN/GLOBULIN RATIO 0.6 (0.8-2.0); ANION GAP 12.7 mmol/L (8-16); BILIRUBIN,TOTAL 0.6 mg/dL (0.2-1.2); CALCIUM 8.1 mg/dL (8.4-10.2); CREATININE, SERUM 0.71 mg/dL (0.57-1.11); POTASSIUM 3.7 mmol/L (3.5-5.1); TOTAL PROTEIN 6.2 g/dL (6.5-8.1)
[2024-05-21 09:56] LABS: ANISOCYTOSIS SLIGHT; HYPOCHROMASIA SLIGHT; PLATELET ESTIMATE ADEQUATE; PLATELET MORPHOLOGY COMMENT NORMAL; RBC MORPHOLOGY COMMENT NORMAL
[2024-05-22] VITALS (10 sets, daily range): BP systolic 93–119; BP diastolic 51–79; PULSE 82–88; RESP 16–20; TEMP 97.6–98.5; O2SAT 95–100
[2024-05-23] VITALS: BP 113/39; PULSE 75; RESP 18; TEMP 98; O2SAT 100
[2024-05-23 04:00] VITALS: BP 101/46; PULSE 84; RESP 18; TEMP 97.6; O2SAT 100
[2024-05-23 07:38] VITALS: PULSE 86; RESP 20; O2SAT 97
[2024-05-23 08:03] VITALS: BP 123/52; PULSE 77; RESP 20; TEMP 98.1; O2SAT 99
[2024-05-23] MEDS ORDERED: SODIUM CHLORIDE 0.9% 100 ML ONE (08:24)
[2024-05-23 10:06] VITALS: BP 123/52; PULSE 77; RESP 20; TEMP 98.1; O2SAT 99
[2024-05-23 11:30] VITALS: BP 115/55; PULSE 86; RESP 18; TEMP 98.2; O2SAT 100
== END 2024-05-23 13:22 | disposition home health service (06) | DRG 871 ==
LOC: ER 06:14 → ERHOLD 08:29 → ICU 12:57 → MED/SURG3 05-15 16:10
PROVIDERS: ADMIT Internal Medicine; ATTEND Internal Medicine
PROC: 02HV33Z Insertion of Infusion Device into Superior Vena Cava, Percutaneous Approach (ICD-10-PCS; principal; 2024-05-13)
PROC: B548ZZA Ultrasonography of Superior Vena Cava, Guidance (ICD-10-PCS; 2024-05-13)
PROC: 3E03329 Introduction of Other Anti-infective into Peripheral Vein, Percutaneous Approach (ICD-10-PCS; 2024-05-13)
PROC: 30233K1 Transfusion of Nonautologous Frozen Plasma into Peripheral Vein, Percutaneous Approach (ICD-10-PCS; 2024-05-13)
DX: A40.8 Other streptococcal sepsis (principal); D65 Disseminated intravascular coagulation [defibrination syndrome]; I26.94 Multiple subsegmental thrombotic pulmonary emboli without acute cor pulmonale; Z68.43 Body mass index [BMI] 50.0-59.9, adult; E66.2 Morbid (severe) obesity with alveolar hypoventilation; N17.9 Acute kidney failure, unspecified; N39.0 Urinary tract infection, site not specified; L03.317 Cellulitis of buttock; L02.31 Cutaneous abscess of buttock; L03.116 Cellulitis of left lower limb; L03.115 Cellulitis of right lower limb; I48.20 Chronic atrial fibrillation, unspecified; I50.30 Unspecified diastolic (congestive) heart failure; M46.28 Osteomyelitis of vertebra, sacral and sacrococcygeal region; E44.0 Moderate protein-calorie malnutrition; E87.20 Acidosis, unspecified; I48.0 Paroxysmal atrial fibrillation; I11.0 Hypertensive heart disease with heart failure; I95.9 Hypotension, unspecified; R65.20 Severe sepsis without septic shock; T45.515A Adverse effect of anticoagulants, initial encounter; R79.1 Abnormal coagulation profile; Z79.01 Long term (current) use of anticoagulants; E83.42 Hypomagnesemia; E87.6 Hypokalemia; R53.81 Other malaise; E88.09 Other disorders of plasma-protein metabolism, not elsewhere classified; D50.0 Iron deficiency anemia secondary to blood loss (chronic); D63.8 Anemia in other chronic diseases classified elsewhere; Z11.52 Encounter for screening for COVID-19; E03.9 Hypothyroidism, unspecified; I89.0 Lymphedema, not elsewhere classified; K21.9 Gastro-esophageal reflux disease without esophagitis; Z71.3 Dietary counseling and surveillance; J45.909 Unspecified asthma, uncomplicated; F41.9 Anxiety disorder, unspecified; Y92.009 Unspecified place in unspecified non-institutional (private) residence as the place of occurrence of the external cause; Z86.718 Personal history of other venous thrombosis and embolism; Z79.899 Other long term (current) drug therapy; Z85.41 Personal history of malignant neoplasm of cervix uteri; Z92.3 Personal history of irradiation; Z92.21 Personal history of antineoplastic chemotherapy
CPT/HCPCS: 36415; 36569; 71045; 74177; 80048; 80053; 80061; 81001; 82550; 82728; 83605; 83735; 84484; 85025; 85379; 85384; 85610; 85730; 86850; 86900; 86920; 87040; 87071; 87086; 87205; 87400; 93005; 93306; 94799; 99252; 99285; J0692; J0696; J2185; J3430; J3475; J3480; J7030; J7050; P9017; Q9967; U0002

== ENCOUNTER → 2024-05-29 | Outpatient (REF) | payer OTHER ==
[~2024-05-29] MED LIST changes: +LIDOCAINE VISC 2% SOLN 15 ML UDC ONE; +LIDOCAINE/PRILOCAINE 2.5-2.5% KIT ONE
== END ==
LOC: WCC 13:00
PROVIDERS: ATTEND Nurse Practitioner Family
DX: S31.819A Unspecified open wound of right buttock, initial encounter (principal)

== ENCOUNTER → 2024-06-10 | Outpatient (REF) | payer OTHER ==
[~2024-06-10] MED LIST changes: -LIDOCAINE/PRILOCAINE 2.5-2.5% KIT ONE
== END ==
LOC: WCC 12:03
PROVIDERS: ATTEND Nurse Practitioner Family
DX: S31.819D Unspecified open wound of right buttock, subsequent encounter (principal)

== ENCOUNTER → 2024-07-08 | Outpatient (REF) | payer OTHER ==
[~2024-07-08] MED LIST changes: -LIDOCAINE VISC 2% SOLN 15 ML UDC ONE
== END ==
LOC: WCC 13:22
PROVIDERS: ATTEND Nurse Practitioner Family
DX: S31.819D Unspecified open wound of right buttock, subsequent encounter (principal)

== ENCOUNTER → 2024-07-22 | Outpatient (REF) | payer OTHER | LOC: WCC 14:35 | PROVIDERS: ATTEND Nurse Practitioner Family | DX: S31.819D Unspecified open wound of right buttock, subsequent encounter (principal) ==

== ENCOUNTER → 2024-08-05 | Outpatient (REF) | payer OTHER ==
[~2024-08-05] MED LIST changes: +LIDOCAINE VISC 2% SOLN 15 ML UDC ONE; +LIDOCAINE/PRILOCAINE 2.5-2.5% KIT ONE
== END ==
LOC: WCC 10:49
PROVIDERS: ATTEND Nurse Practitioner Family
DX: S31.819D Unspecified open wound of right buttock, subsequent encounter (principal)

== ENCOUNTER → 2024-08-20 | Outpatient (REF) | payer OTHER ==
[~2024-08-20] MED LIST changes: -LIDOCAINE VISC 2% SOLN 15 ML UDC ONE; -LIDOCAINE/PRILOCAINE 2.5-2.5% KIT ONE
== END ==
LOC: WCC 13:45
PROVIDERS: ATTEND Nurse Practitioner Family
DX: S31.819D Unspecified open wound of right buttock, subsequent encounter (principal)

== ENCOUNTER → 2024-09-09 | Outpatient (REF) | payer OTHER | LOC: WCC 14:24 | PROVIDERS: ATTEND Nurse Practitioner Family | DX: S31.819D Unspecified open wound of right buttock, subsequent encounter (principal) ==

== ENCOUNTER → 2024-09-30 | Outpatient (REF) | payer OTHER | LOC: WCC 10:54 | PROVIDERS: ATTEND Nurse Practitioner Family | DX: S31.819D Unspecified open wound of right buttock, subsequent encounter (principal) ==

== ENCOUNTER → 2024-10-29 | Outpatient (REF) | payer OTHER ==
[~2024-10-29] MED LIST changes: +LIDOCAINE VISC 2% SOLN 15 ML UDC ONE
== END ==
LOC: WCC 13:33
PROVIDERS: ATTEND Nurse Practitioner Family
DX: S31.819D Unspecified open wound of right buttock, subsequent encounter (principal)

== ENCOUNTER → 2024-11-12 | Outpatient (REF) | payer OTHER ==
[~2024-11-12] MED LIST changes: -LIDOCAINE VISC 2% SOLN 15 ML UDC ONE
== END ==
LOC: WCC 09:52
PROVIDERS: ATTEND Nurse Practitioner Family
DX: S31.819D Unspecified open wound of right buttock, subsequent encounter (principal); L89.152 Pressure ulcer of sacral region, stage 2

== ENCOUNTER → 2025-04-21 | Outpatient (REF) | payer OTHER | LOC: WCC 10:52 | PROVIDERS: ATTEND Nurse Practitioner Family | DX: L89.153 Pressure ulcer of sacral region, stage 3 (principal) | CPT/HCPCS: 87071; 87075; 87186; 87205 ==

== ENCOUNTER → 2025-04-28 | Outpatient (REF) | payer OTHER | LOC: WCC 11:00 | PROVIDERS: ATTEND Nurse Practitioner Family | DX: L89.153 Pressure ulcer of sacral region, stage 3 (principal); B96.89 Other specified bacterial agents as the cause of diseases classified elsewhere ==

== ENCOUNTER → 2025-04-29 | Outpatient (REF) | payer OTHER | LOC: CT 14:37 | PROVIDERS: ATTEND Nurse Practitioner Family | DX: L89.153 Pressure ulcer of sacral region, stage 3 (principal) | CPT/HCPCS: 74176 ==

== ENCOUNTER → 2025-05-01 | Outpatient (REF) | payer OTHER | LOC: WCC 12:48 | PROVIDERS: ATTEND Nurse Practitioner Family | DX: L89.153 Pressure ulcer of sacral region, stage 3 (principal); B96.89 Other specified bacterial agents as the cause of diseases classified elsewhere ==

== ENCOUNTER → 2025-05-04 | Outpatient (REF) | payer OTHER | LOC: WCC 15:40 | PROVIDERS: ATTEND Nurse Practitioner Family | DX: L89.153 Pressure ulcer of sacral region, stage 3 (principal); B96.89 Other specified bacterial agents as the cause of diseases classified elsewhere ==

== ENCOUNTER → 2025-05-06 | Outpatient (REF) | payer OTHER | LOC: WCC 16:11 | PROVIDERS: ATTEND Nurse Practitioner Family | DX: L89.153 Pressure ulcer of sacral region, stage 3 (principal); B96.89 Other specified bacterial agents as the cause of diseases classified elsewhere ==

== ENCOUNTER → 2025-05-08 | Outpatient (REF) | payer OTHER | LOC: WCC 13:03 | PROVIDERS: ATTEND Nurse Practitioner Family | DX: L89.153 Pressure ulcer of sacral region, stage 3 (principal) ==

== ENCOUNTER → 2025-05-12 | Outpatient (REF) | payer OTHER | LOC: WCC 14:04 | PROVIDERS: ATTEND Nurse Practitioner Family | DX: L89.153 Pressure ulcer of sacral region, stage 3 (principal) ==

== ENCOUNTER → 2025-05-15 | Outpatient (REF) | payer OTHER | LOC: WCC 14:07 | PROVIDERS: ATTEND Nurse Practitioner Family | DX: L89.153 Pressure ulcer of sacral region, stage 3 (principal) ==

== ENCOUNTER → 2025-05-19 | Outpatient (REF) | payer OTHER | LOC: WCC 13:35 | PROVIDERS: ATTEND Nurse Practitioner Family | DX: L89.153 Pressure ulcer of sacral region, stage 3 (principal) ==

== ENCOUNTER → 2025-05-22 | Outpatient (REF) | payer OTHER | LOC: WCC 14:00 | PROVIDERS: ATTEND Nurse Practitioner Family | DX: L89.153 Pressure ulcer of sacral region, stage 3 (principal); B96.89 Other specified bacterial agents as the cause of diseases classified elsewhere ==

== ENCOUNTER → 2025-05-26 | Outpatient (REF) | payer OTHER | LOC: WCC 09:59 | PROVIDERS: ATTEND Nurse Practitioner Family | DX: L89.153 Pressure ulcer of sacral region, stage 3 (principal); B96.89 Other specified bacterial agents as the cause of diseases classified elsewhere ==

== ENCOUNTER → 2025-06-01 | Outpatient (REF) | payer OTHER | LOC: WCC 13:37 | PROVIDERS: ATTEND Nurse Practitioner Family | DX: L89.153 Pressure ulcer of sacral region, stage 3 (principal) ==

== ENCOUNTER → 2025-06-09 | Outpatient (REF) | payer OTHER | LOC: WCC 14:47 | PROVIDERS: ATTEND Nurse Practitioner Family | DX: L89.153 Pressure ulcer of sacral region, stage 3 (principal); B37.89 Other sites of candidiasis ==

== ENCOUNTER 2025-07-07 17:39 | Inpatient (IN) | payer OTHER ==
[~2025-07-07] VITALS: Ht 172.7 cm; Wt 113.4 kg
[2025-07-07 17:50] VITALS: TEMP 98.3
[2025-07-07 18:30] LABS: BASOPHILS % 0.4 % (0.0-1.0); EOSINOPHILS % 0.9 % (0.0-6.0); LYMPHOCYTES % 5.5 % (18.0-39.1); MONOCYTES % 7.7 % (4.4-11.3); NEUTROPHILS % 83.8 % (38.7-80.0); RED CELL DISTRIBUTION WIDTH 17.9 % (11.7-14.4)
[2025-07-07 18:53] LABS: EST GLOMERULAR FILTRATION RATE 16.0 ML/MIN (>=60)
[2025-07-07 19:12] LABS: LEUKOCYTE ESTERASE ,URINE LARGE (NEGATIVE); PROTEIN,URINE DIPSTICK 1+ (NEGATIVE); URINE UROBILINOGEN 0.2 mg/dL (0.2 - 1)
[2025-07-07] MEDS: ONDANSETRON HCL INJ 2MG/ML 2ML 2 MG/ML VIAL IV STA (19:20)
[2025-07-07] MEDS: SODIUM CHLORIDE 0.9% 1000ML 1,000 ML IV STA ×2 (19:20→20:23)
[2025-07-07] MEDS: Morphine 4mg INJECTION 4 MG/ML INJ IV STA (19:20)
[2025-07-07 19:23] LABS: WBC,URINE (MAN) >50 /HPF (0-5)
[2025-07-07] MEDS: VANCOMYCIN HCL 1.25 GM in SODIUM CHLORIDE 0.9% 250ML 250 ML IV ONE (20:22)
[2025-07-07] MEDS: ACETAMINOPHEN 325 MG TAB PO STA (20:23)
[2025-07-07 22:20] VITALS: PULSE 63; RESP 18; O2SAT 99
[2025-07-07 23:00] VITALS: PULSE 64; RESP 16
[2025-07-08] VITALS (10 sets, daily range): BP systolic 97–115; BP diastolic 48–85; PULSE 64–73; RESP 17–19; TEMP 97.3–98; O2SAT 92–100
[2025-07-08] MEDS: SODIUM CHLORIDE 0.9% 1000ML 1,000 ML IV SCH (00:42)
[2025-07-08] MEDS: Morphine 4mg INJECTION 4 MG/ML INJ IV PRN ×2 (00:46→15:37)
[2025-07-08] MEDS ORDERED: METOPROLOL TART50 MG PO (04:08)
[2025-07-08] MEDS ORDERED: AMIODARONE HCL200 MG PO (04:08)
[2025-07-08] MEDS ORDERED: WARFARIN SODIUM5 MG PO (04:08)
[2025-07-08 06:33] LABS: BASOPHILS % 0.3 % (0.0-1.0); EOSINOPHILS % 0.1 % (0.0-6.0); LYMPHOCYTES % 3.7 % (18.0-39.1); MONOCYTES % 6.7 % (4.4-11.3); NEUTROPHILS % 87.4 % (38.7-80.0); RED CELL DISTRIBUTION WIDTH 18.1 % (11.7-14.4)
[2025-07-08 06:58] LABS: EST GLOMERULAR FILTRATION RATE 14.0 ML/MIN (>=60)
[2025-07-08 07:20] LABS: LYMPHOCYTES % (MANUAL) 2 % (19-48); MONOCYTES % (MANUAL) 11 % (3.4-9.0); NEUTROPHILS % (MANUAL) 87 % (40-74); PLATELET ESTIMATE ADEQUATE; PLATELET MORPHOLOGY COMMENT NORMAL; RBC MORPHOLOGY COMMENT NORMAL
[2025-07-08] MEDS: LINEZOLID 600 MG/D5W 300ML 300 ML IV SCH (09:38)
[2025-07-08 10:08] LABS: INR 2.24
[2025-07-08] MEDS: ONDANSETRON HCL INJ 2MG/ML 2ML 2 MG/ML VIAL IV PRN (11:30)
[2025-07-08] MEDS: WARFARIN SOD 5 MG TAB PO SCH (22:39)
[2025-07-08 23:03] LABS: CREATININE,URINE RANDOM 99.22 mg/dL (47-110); TOTAL PROTEIN, URINE 30.2 mg/dL (1-14)
[2025-07-09] VITALS (14 sets, daily range): BP systolic 81–118; BP diastolic 43–69; PULSE 66–107; RESP 11–20; TEMP 97–98.2; O2SAT 92–100
[2025-07-09] MEDS: LEVOTHYROXINE SODIUM 100 MCG TAB PO SCH (05:22)
[2025-07-09] MEDS: PANTOPRAZOLE SOD 40 MG TABEC PO SCH (05:22)
[2025-07-09 06:35] LABS: BASOPHILS % 0.3 % (0.0-1.0); EOSINOPHILS % 0.1 % (0.0-6.0); LYMPHOCYTES % 3.6 % (18.0-39.1); MONOCYTES % 5.7 % (4.4-11.3); NEUTROPHILS % 87.6 % (38.7-80.0); RED CELL DISTRIBUTION WIDTH 18.6 % (11.7-14.4)
[2025-07-09 07:03] LABS: EST GLOMERULAR FILTRATION RATE 10.0 ML/MIN (>=60)
[2025-07-09] MEDS: TOLTERODINE TARTRATE 4 MG CAPCR PO SCH (09:24)
[2025-07-09] MEDS: AMIODARONE HCL 200 MG TAB PO SCH (09:24)
[2025-07-09] MEDS: BUPROPION HCL SR 150 MG TAB PO SCH (09:24)
[2025-07-09] MEDS: SODIUM BICARBONATE 8.4% VIAL 50 ML in SODIUM CHLORIDE 0.45% 1,000 ML IV SCH (11:51)
[2025-07-09 13:24] LABS: LYMPHOCYTES % (MANUAL) 2 % (19-48); MONOCYTES % (MANUAL) 5 % (3.4-9.0); NEUTROPHILS % (MANUAL) 93 % (40-74)
[2025-07-09 13:25] LABS: PLATELET ESTIMATE ADEQUATE; PLATELET MORPHOLOGY COMMENT NORMAL; RBC MORPHOLOGY COMMENT NORMAL
[2025-07-09 16:07] LABS: EST GLOMERULAR FILTRATION RATE 10.0 ML/MIN (>=60)
[2025-07-09] MEDS: LACTATED RINGER'S 1,000 ML INJ SCH (18:20)
[2025-07-09] MEDS ORDERED: LACTATED RINGER'S 500 ML IV SCH (20:30)
[2025-07-09] MEDS: SODIUM CHLORIDE 0.9% 250ML 250 ML ONE (22:21)
[2025-07-09] MEDS: NOREPINEPHRINE 8 MG/D5W 250 ML 250 ML IV SCH (22:30)
[2025-07-09] MEDS: SODIUM CHLORIDE 0.9% 1000ML 2,000 ML IV STA (22:59)
[2025-07-10] VITALS (85 sets, daily range): BP systolic 71–123; BP diastolic 45–88; PULSE 66–102; RESP 11–23; TEMP 97.3–97.6; O2SAT 92–100
[2025-07-10 05:52] LABS: BASOPHILS % 0.2 % (0.0-1.0); EOSINOPHILS % 0.0 % (0.0-6.0); LYMPHOCYTES % 2.0 % (18.0-39.1); MONOCYTES % 3.7 % (4.4-11.3); NEUTROPHILS % 90.6 % (38.7-80.0); RED CELL DISTRIBUTION WIDTH 18.8 % (11.7-14.4)
[2025-07-10 06:23] LABS: INR 4.14
[2025-07-10 06:31] LABS: EST GLOMERULAR FILTRATION RATE 9.0 ML/MIN (>=60)
[2025-07-10] MEDS: Vancomycin IV 1 GM in SODIUM CHLORIDE 0.9% 250ML 250 ML IV STA (08:22)
[2025-07-10 09:16] LABS: LYMPHOCYTES % (MANUAL) 1 % (19-48); MONOCYTES % (MANUAL) 3 % (3.4-9.0); NEUTROPHILS % (MANUAL) 96 % (40-74); PLATELET ESTIMATE ADEQUATE; PLATELET MORPHOLOGY COMMENT NORMAL
[2025-07-10] MEDS: MUPIROCIN 2% OINT 22 GM TUBE TOP SCH (09:25)
[2025-07-10] MEDS: LACTATED RINGER'S 1,000 ML INJ SCH (11:23)
[2025-07-10] MEDS ORDERED: ALBUMIN 25% 25GM 100ML 0.25 GM/ML BTL IV ONE (16:30)
[2025-07-10 16:42] LABS: ABG PCO2 39 mmHg (35-45); ABG PH 7.25 (7.35-7.45); ABG PO2 102 mmHg (80-105)
[2025-07-10 16:43] LABS: ABG BASE EXCESS -10.0 mmol/L (-2 - 3); ABG HCO3 17 mmol/L (22-26); ABG OXYGEN SATURATION 97.0 % (95-98); ABG TCO2 18
[2025-07-10] MEDS: ALBUMIN 25% 25GM 100ML 100 ML IV SCH (17:17)
[2025-07-10] MEDS: SODIUM BICARBONATE 8.4% VIAL 50 ML in DEXTROSE 5%/0.45% SOD CHL 1,000 ML IV SCH (17:51)
[2025-07-10] MEDS: FUROSEMIDE INJ 10 MG/ML 4 ML VIAL IV ONE (18:04)
[2025-07-10] MEDS: VASOPRESSIN 60 UNIT in DEXTROSE 5% 50ML 57 ML IV SCH (18:16)
[2025-07-10] MEDS ORDERED: FUROSEMIDE INJ 100 MG in SODIUM CHLORIDE 0.9% 90 ML IV SCH (18:35)
[2025-07-10] MEDS: SODIUM CHLORIDE 0.9% 1000ML 1,000 ML IV ONE (18:52)
[2025-07-10] MEDS: FUROSEMIDE INJ 100 MG in SODIUM CHLORIDE 0.9% 90 ML IV SCH (19:20)
[2025-07-11] VITALS (8 sets, daily range): BP systolic 95–104; BP diastolic 69–79; PULSE 84–86; RESP 13–17; O2SAT 92–96
[2025-07-11 08:12] LABS: COMPLEMENT C3 47 mg/dL (82-167)
[2025-07-11 15:39] LABS: COMPLEMENT C4 16 mg/dL (12-38)
[2025-07-11 15:40] LABS: ANTI DNA DS ANTIBODY 2 IU/mL (0-9)
[2025-07-13 15:13] LABS: cANCA TITER <1:20 titer (Neg:<1:20)
[2025-07-13 17:02] LABS: ATYPICAL pANCA TITER <1:20 titer (Neg:<1:20); pANCA TITER <1:20 titer (Neg:<1:20)
[2025-07-17 12:10] LABS: ABG BASE EXCESS -10.0 mmol/L (-2 - 3); ABG HCO3 17 mmol/L (22-26); ABG OXYGEN SATURATION 97.0 % (95-98); ABG PCO2 39 mmHg (35-45); ABG PH 7.25 (7.35-7.45); ABG PO2 102 mmHg (80-105); ABG TCO2 18
== END 2025-07-11 02:35 | disposition other institution (70) | DRG 871 ==
LOC: ER 17:45 → ERHOLD 22:40 → MED/SURG3 23:58 → ICU 07-09 23:02
PROVIDERS: ADMIT Family Medicine; ATTEND Family Medicine
PROC: 4A033B1 Measurement of Arterial Pressure, Peripheral, Percutaneous Approach (ICD-10-PCS; principal; 2025-07-10)
PROC: 3E033XZ Introduction of Vasopressor into Peripheral Vein, Percutaneous Approach (ICD-10-PCS; 2025-07-10)
DX: A41.9 Sepsis, unspecified organism (principal); G82.50 Quadriplegia, unspecified; R65.21 Severe sepsis with septic shock; N17.9 Acute kidney failure, unspecified; N39.0 Urinary tract infection, site not specified; L03.317 Cellulitis of buttock; E44.0 Moderate protein-calorie malnutrition; D68.9 Coagulation defect, unspecified; E87.20 Acidosis, unspecified; I13.0 Hypertensive heart and chronic kidney disease with heart failure and stage 1 through stage 4 chronic kidney disease, or unspecified chronic kidney disease; L89.159 Pressure ulcer of sacral region, unspecified stage; J45.909 Unspecified asthma, uncomplicated; I48.91 Unspecified atrial fibrillation; F41.9 Anxiety disorder, unspecified; K21.9 Gastro-esophageal reflux disease without esophagitis; M19.90 Unspecified osteoarthritis, unspecified site; E66.01 Morbid (severe) obesity due to excess calories; D72.829 Elevated white blood cell count, unspecified; I50.9 Heart failure, unspecified; E03.9 Hypothyroidism, unspecified; G47.33 Obstructive sleep apnea (adult) (pediatric); I73.9 Peripheral vascular disease, unspecified; I27.20 Pulmonary hypertension, unspecified; M62.81 Muscle weakness (generalized); B95.8 Unspecified staphylococcus as the cause of diseases classified elsewhere; I95.9 Hypotension, unspecified; I89.0 Lymphedema, not elsewhere classified; I87.8 Other specified disorders of veins; I87.2 Venous insufficiency (chronic) (peripheral); N18.9 Chronic kidney disease, unspecified; Z79.01 Long term (current) use of anticoagulants; Z85.41 Personal history of malignant neoplasm of cervix uteri; Z88.0 Allergy status to penicillin; Z79.51 Long term (current) use of inhaled steroids; Z79.890 Hormone replacement therapy; Z86.711 Personal history of pulmonary embolism; Z90.710 Acquired absence of both cervix and uterus; Z88.5 Allergy status to narcotic agent; Z88.8 Allergy status to other drugs, medicaments and biological substances; Z92.3 Personal history of irradiation; Z92.21 Personal history of antineoplastic chemotherapy; Z68.38 Body mass index [BMI] 38.0-38.9, adult
CPT/HCPCS: 36415; 36600; 70450; 71250; 74176; 76770; 80048; 80053; 81001; 82550; 82570; 82805; 83605; 83690; 84156; 84484; 85025; 85610; 85730; 86021; 86039; 86160; 86225; 87040; 87071; 87086; 87186; 87205; 93005; 93306; 94799; 99252; 99285; J0692; J1938; J1940; J2020; J2270; J2405; J2470; J3373; J7030; J7050; P9047